=== PATIENT | female | born 1955 ===

== ENCOUNTER 2025-03-20 19:02 | Emergency (ER) | payer MEDICARE, BC, SELFPAY ==
--- NOTE | ~2025-03-20 | XR_ITS ---
EXAMINATION: XR forearm LT 2V, XR wrist LT 2V DATE: 03/20/2025 20:32 INDICATION: Left forearm pain. Left wrist pain. No mention of trauma. TECHNIQUE: 2 Views of left forearm and wrist were obtained. COMPARISON: None. FINDINGS: No acute bony lesions at the wrist. Intercarpal spaces are normal. Soft tissues are normal. Questionable irregularity of neck of the radius at the right elbow. No definite acute fracture. Soft tissues are unremarkable. IMPRESSION: 1. No acute bony lesions at the left wrist in the limited 2 views. 2. Questionable irregularity at the neck of the radius in the proximal forearm at the elbow. Please correlate with clinical findings are localized tenderness. If symptoms warrant further evaluation with MRI is recommended. Reviewed, dictated and finalized at location [facility]. F OPHTHALMIC TECHNICIAN IMPRESSION: 1. No acute bony lesions at the left wrist in the limited 2 views. 2. Questionable irregularity at the neck of the radius in the proximal forearm at the elbow. Please correlate with clinical findings are localized tenderness. If symptoms warrant further evaluation with MRI is recommended.
[2025-03-20 19:03] VITALS: BP 130/49; PULSE 91; RESP 18; TEMP 36.6; O2SAT 94
--- OUTSIDE RECORDS SUMMARY | 2025-03-20 22:34 | XMS_ITS | Clinical Summary ---
Author Organization [facility] Address [address] [place] [address] Care Team Providers Care Cutting Machine Offbearer Name Role Phone Unavailable Primary Care Provider Unavailabl e Source Comments [facility],non-owned Affiliates and Associated Physician Practices is amultiple site organization consisting of ambulatory clinics and hospital sitesin [place], [place], [place] and [place]. This disclosure is being madepursuant to the Care Everywhere program and may not contain all information available regarding this patient. 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 Gender Identity Not on file Sexual Orientation Not on file Plan of Treatment Health Maintenance Due Date Last Done Comments BONE DENSITY TESTING 1955 COLOGUARD (AGES 45-75) - COL ON CA SCREENING 1955 COLON MONITORING 1955 COLONOSCOPY - COLON CA SCREENING 1955 CT COLONOGRAPHY - COLON CA SCREENING 1955 Colorectal Cancer Screening 1955 FIT - COLON CA SCREENING 1955 FLEX SIG - COLON CA SCREENING 1955 LIPID TESTING 1955 MAMMOGRAM 1955 HEPATITIS C SCREENING 02/24/1973 DTAP/TDAP/TD VACCINES (1 - Tdap) 1974 PNEUMOCOCCAL VACCINE 50+ (1 of 1 - PCV) 2005 ZOSTER VACCINE (1 of 2) 2005 DEPRESSION SCREENING 04/10/2024 COVID-19 VACCINE (1 - 2024-2 6 season) 2024 INFLUENZA VACCINE (#1) 2024 Respiratory Syncytial Virus (RSV) Vaccine Pt: or over 60 yrs (1 - 1-dose 75+ series) 2030 HEPATITIS B VACCINE Aged Out No longe r eligible based on patient's age to complete this topic HIB VACCINE Aged Out No longer eligi ble based on patient's age to complete this topic HPV VACCINE Aged Out No longer eligi ble based on patient's age to complete this topic MENINGOCOCCAL (Group B) VACC INE SHARED DECISION-MAKING Aged Out No longer eligibl e based on patient's age to complete this topic MENINGOCOCCAL GROUPS A/C/Y/W VACCINE Aged Out No longer eligible b ased on patient's age to complete this topic Insurance HAN
--- NOTE | 2025-03-20 23:09 | ED.UPPEXIN ---
HPI - Extremity Injury (Upper) General Chief Complaint: Extremity Injury, Upper Stated Complaint: left elbow fx Time Seen by Provider: 03/20/25 22:06 Source: patient Mode of arrival: ambulatory Limitations: no limitations History of Present Illness HPI narrative: This is a 70-year-old female with history of CVA who presents to the ED for elbow pain. Patient states that a week ago, she fell onto her left elbow. She later had a CVA so this was not evaluated. She has continued to have pain so xrays were obtained and revealed a possible fracture to her elbow, prompting her to be sent here for further evaluation. PAtient reports she has had difficulty using her elbow due to the pain. Related Data Home Medications ?Medication ?Instructions ?Recorded ?Confirmed ?Last Taken ?Type albuterol sulfate 90 mcg/actuation 2 puff inhalation Q6H PRN wheezing 03/18/25 03/18/25 Unknown History aerosol inhaler (Ventolin HFA) aspirin 81 mg chewable tablet 81 mg PO DAILY 03/18/25 03/18/25 03/18/25 08:30 History atorvastatin 80 mg tablet (Lipitor) 80 mg PO DAILY 03/18/25 03/18/25 03/18/25 08:30 History benazepril 40 mg tablet 40 mg PO DAILY 03/18/25 03/18/25 Unknown History budesonide-formoterol HFA 160 2 puff inhalation Q12H 03/18/25 03/18/25 Unknown History mcg-4.5 mcg/actuation aerosol inhaler calcium 500 mg (as 1 tablet PO DAILY 03/18/25 03/18/25 Unknown History carbonate)-vitamin D3 5 mcg (200 unit) tablet cetirizine 10 mg tablet 10 mg PO DAILY 03/18/25 03/18/25 03/18/25 08:30 History clobetasol 0.05 % topical ointment 1 applic topical BID 03/18/25 03/18/25 Unknown History clopidogrel 75 mg tablet 75 mg PO DAILY 03/18/25 03/18/25 03/18/25 08:30 History esomeprazole magnesium 40 mg 40 mg PO DAILY@0630 03/18/25 03/18/25 Unknown History capsule,delayed release metformin 500 mg 24 hr 1,000 mg PO DAILY 03/18/25 03/18/25 Unknown History tablet,extended release (gastric retention) (Glumetza) multivitamin,tx-minerals 1 tablet PO DAILY 03/18/25 03/18/25 03/18/25 08:30 History pioglitazone 45 mg tablet 45 mg PO DAILY 03/18/25 03/18/25 03/18/25 08:30 History saxagliptin 5 mg tablet 5 mg PO DAILY 03/18/25 03/18/25 Unknown History sertraline 100 mg tablet 100 mg PO DAILY 03/18/25 03/18/25 03/18/25 08:30 History Allergies Allergy/AdvReac Type Severity Reaction Status Date / Time morphine Allergy Mild Hives Verified 03/18/25 16:37 sulfamethoxazole (From Allergy Mild Hives Verified 03/18/25 16:37 Bactrim) trimethoprim (From Bactrim) Allergy Mild Hives Verified 03/18/25 16:37 Review of Systems Review of Systems: Gen.: Denies fevers or chills Eyes: Denies eye pain or visual change ENT: Denies congestion Respiratory: Denies shortness of breath or cough CV: Denies chest pain or palpitations GI: Denies abdominal pain nausea, emesis or diarrhea denies burning, urgency, frequency or hematuria Musculoskeletal: As per HPI Neuro: Denies numbness, tingling, weakness or focal weakness Skin: Denies rash Except as documented, all other systems reviewed and negative [facility] Family History Family History Mother Lung cancer Grandparent Diabetes mellitus Father Malignant neoplasm of prostate Hypertension Social History Social History Smoking status: Former smoker Tobacco type: cigarettes Smoking end date: 03/10/99 Alcohol intake: current Drinks per week: 1 Substance use: never Substance use type: does not use Lack of Transportation: No Lack of Food: Never True Current Housing: I Have Housing Concerned About Future Housing: No Difficulty Paying Gas/Electric Bills: No Difficulty Paying for Meds: No Currently Unemployed: No Education: Bachelor's Degree Difficulty w/ Childcare or Family Care: No Living arrangements: alone Occupation/Education: retired Gender identity (if verbalized by the patient): Female Sexual Orientation (if Verbalized by the Patient): Straight or Heterosexual Spiritual care concerns: No Agree to blood products: Yes Exam Narrative: APPEARANCE: No acute distress, nontoxic, resting in bed EYES: EOMI HEENT: Normocephalic, atraumatic, OMM RESPIRATORY: No respiratory distress Clear to auscultation bilaterally with no rhonchi wheezing or rales. CARDIOVASCULAR: Regular rate and rhythm without murmurs rubs or gallops. ABDOMINAL: Soft, nontender, nondistended, no rebound or guarding MUSCULOSKELETAl: Moves all extremities. Tenderness to palpation over the right radial head, slightly decreased passive range of motion NEURO: Awake and alert. Following commands, speech normal, no focal deficits SKIN:: Warm, dry. No rashes lesions or abrasions PSYCHIATRIC: Normal affect/mood, Course Vital Signs Vital signs: Vital Signs Temperature 97.8 F 03/20/25 19:03 Pulse Rate 91 03/20/25 19:03 Respiratory Rate 18 03/20/25 19:03 Blood Pressure 130/49 L 03/20/25 19:03 Pulse Oximetry 94 03/20/25 19:03 Oxygen Delivery Room Air 03/20/25 19:03 Temperature 97.8 F 03/20/25 19:03 Pulse Rate 78 03/21/25 00:43 Respiratory Rate 16 03/21/25 00:43 Blood Pressure 126/61 03/21/25 00:43 Pulse Oximetry 96 03/21/25 00:43 Oxygen Delivery Room Air 03/20/25 19:03 [facility] Narrative Medical decision making narrative: 70-year-old female Presenting for left arm injury. On initial evaluation patient was in no acute distress afebrile, hemodynamic stable. Differentials include but are not limited to: Fracture, sprain, strain, contusion Notable exam findings: Mild tenderness over the left radial head on a mild pain with passive range of motion of the left elbow. Scattered areas of ecchymosis Left elbow x-ray showed a possible nondisplaced left radial head fracture. Patient was placed in a sling. She was given a referral to Orthopedic surgery for further evaluation and management. Patient was agreeable to this plan. Given strict return precautions for Differential Diagnosis Differential Diagnosis: Fracture, sprain, strain, contusion Imaging Data Radiologist's impression: ITS Impressions Forearm X-Ray 03/20/25 20:36 IMPRESSION: 1. No acute bony lesions at the left wrist in the limited 2 views. 2. Questionable irregularity at the neck of the radius in the proximal forearm at the elbow. Please correlate with clinical findings are localized tenderness. If symptoms warrant further evaluation with MRI is recommended. Wrist X-Ray 03/20/25 20:36 IMPRESSION: 1. No acute bony lesions at the left wrist in the limited 2 views. 2. Questionable irregularity at the neck of the radius in the proximal forearm at the elbow. Please correlate with clinical findings are localized tenderness. If symptoms warrant further evaluation with MRI is recommended. Discharge Plan Discharge Clinical Impression: Radius head fracture Qualifiers: Encounter type: initial encounter Fracture type: closed Fracture alignment: nondisplaced Laterality: left Qualified Code(s): S52.125A - Nondisplaced fracture of head of left radius, initial encounter for closed fracture Patient Disposition: Home Condition: Stable Instructions: Antibiotic Form, Arm Fracture in Adults (ED) Additional Instructions: Keep arm in splint. Follow up with orthopedic surgery in the next few days for reevaluation. REturn to the ED for new or worsening symptoms. Patient Language: Lao Prescriptions: No Action clopidogrel 75 mg tablet 75 mg PO DAILY Rx Instructions: x21 days from 03/19 atorvastatin [Lipitor] 80 mg tablet 80 mg PO DAILY Rx Instructions: x30 days cetirizine 10 mg tablet 10 mg PO DAILY sertraline 100 mg tablet 100 mg PO DAILY pioglitazone 45 mg tablet 45 mg PO DAILY esomeprazole magnesium 40 mg capsule,delayed release(DR/EC) 40 mg PO DAILY@0630 aspirin 81 mg tablet,chewable 81 mg PO DAILY clobetasol 0.05 % ointment 1 applic topical BID benazepril 40 mg tablet 40 mg PO DAILY albuterol sulfate [Ventolin HFA] 90 mcg/actuation HFA aerosol inhaler 2 puff inhalation Q6H PRN (Reason: wheezing) multivitamin,tx-minerals Tablet 1 tablet PO DAILY calcium carbonate-vitamin D3 500 mg-5 mcg (200 unit) tablet 1 tablet PO DAILY budesonide-formoterol 160-4.5 mcg/actuation HFA aerosol inhaler 2 puff inhalation Q12H saxagliptin 5 mg tablet 5 mg PO DAILY metformin [Glumetza] 500 mg tablet,ER leandra.retention 24 hr 1,000 mg PO DAILY Patient Comments: with breakfast Follow-up/Referrals: OMER,Elmer URENA [Primary Care Provider, Unknown] Darin Domingo MD [Physician, Orthopedics]
[2025-03-21 00:43] VITALS: BP 126/61; PULSE 78; RESP 16; O2SAT 96
== END 2025-03-21 00:45 ==
PROVIDERS: Emergency Provider Student in an Organized Health Care Education/Training Program; PCP Family Medicine
DX: S52.125A Nondisplaced fracture of head of left radius, initial encounter for closed fracture (principal); I69.951 Hemiplegia and hemiparesis following unspecified cerebrovascular disease affecting right dominant side; Z87.891 Personal history of nicotine dependence; W19.XXXA Unspecified fall, initial encounter
CPT/HCPCS: 73090; 73100; 99284; A4565